=== PATIENT | male | born 1930 | race Caucasian/White ===

== ENCOUNTER 2017-10-09 14:26 | Inpatient (IN) ==
[2017-10-09 15:11] VITALS: BMI 29.0
--- NOTE | 2017-10-09 15:30 | History & Physical Report ---
History of Present Illness Date: 10/09/17 Chief complaint: influenza HPI: Patient is a very pleasant 87yo male who appears younger than stated age. He lives independently. He reported to his PCP's office (Dr Bowman) this morning with fever, cough and SOA. His O2 sat was low 80's on arrival and he required 2L O2 to keep sats >90%. Patient has asthma since age 21. He states his sxs started at 5pm last night. Influenza testing was positive for "B" in PCP's office. Given the influenza dx in an asthmatic pt with O2 sats in the low 80's , hospitalist service was contacted and accepted patient as a direct admit for IP hospitalization for tx w/ Tamiflu and Duonebs and further w-u. Review of Systems All systems PM: 10-point ROS was reviewed, no additional remarkable complaints except (cough, SOA, fever) Past Medical History Medical History DM Type 2 - on insulin H/o TIA Coronary Artery Disease - s/p stents and CABG HTN HLD Asthma -since age 21 (never smoker) Osteoporosis Surgical History: Total left knee arthroplasty, cataract bilaterally, back surgery 2 Family History: Father-"heart trouble" Mother- of old age at 99 Brother-"heart trouble" Sister-Alzheimer's Family History Updates: Updated - Social History Smoking status: Never smoker Substance use type: does not use Alcohol intake frequency: other (drinks wine occasionally) Housing: house Household members: none Current occupational status: retired Social history: 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 Mario in the past Brother, Tonio, and son, Juancho (lives in [place]) - named as DPOA-H Medications Home Medications Medication Instructions Recorded Confirmed Type Albuterol Sulfate [Proair Hfa] 2 puff INH Q4H PRN #0 inhaler 03/29/16 10/09/17 History Carvedilol [Coreg] 6.25 mg PO BIDWM #0 tab 03/29/16 10/09/17 History Fluticasone/Salmeterol [Advair 1 puff ORAL INH BID #0 inhaler 03/29/16 10/09/17 History 250-50 Diskus] Insulin Glargine,Hum.rec.anlog 30 unit SQ BID #0 03/29/16 10/09/17 History [Lantus Solostar] Alendronate Sodium [Alendronate 70 mg PO DAILY 02/12/17 10/09/17 History Sodium] Aspirin [Adult Low Dose Aspirin EC] 81 mg PO DAILY 02/12/17 10/09/17 History Cetirizine HCl 5 mg PO BID 02/12/17 10/09/17 History Multivitamin [Multivitamins] 1 tab PO DAILY 02/12/17 10/09/17 History Ubidecarenone [Co Q-10] 200 mg PO BID 10/09/17 10/09/17 History Allergies Allergy/AdvReac Type Severity Reaction Status Date / Time No Known Drug Allergies Allergy Unknown Verified 02/12/17 13:41 Exam Vital Signs: Temperature 101.5 F H 10/09/17 14:55 Pulse Rate 118 H 10/09/17 14:55 Respiratory Rate 22 10/09/17 14:55 Blood Pressure 182/72 H 10/09/17 14:55 Pulse Oximetry 91 10/09/17 14:55 Height/Weight/BMI: Height 1.65 m Weight 79.3 kg Body Mass Index 29.0 - Constitutional Present: no acute distress, well nourished, well developed - Routine HEENT Exam Head: Present: normocephalic, atraumatic Eye: Present: EOMI, PERRL ENT: Present: mucous membranes moist, oropharynx clear Comments: upper plate - Routine Neck Exam Present: supple. Absent: lymphadenopathy, thyromegaly - Routine Respiratory Exam Present: decreased breath sounds. Absent: wheezes Comments: tight/coarse sounding cough. Crackles R mid/lower lung - Routine Cardiovascular Exam Present: RRR, no murmur, tachycardia - Routine Abdominal Exam Present: soft, normoactive bowel sounds. Absent: tenderness, distended - Routine Extremities Exam Present: no edema, normal capillary refill - Routine Skin Exam Present: dry, warm - Routine Neurological Exam Present: alert, oriented X3 CN III-XII intact - Routine Psychiatric Exam Present: normal affect, cooperative Results - Labs CBC & Chem 7: 10/09/17 16:35 10/09/17 16:35 Assessment and Plan (1) Influenza B Current visit: Yes Status: Acute Assessment and Plan: Assessment Influenza B Possible (severe) sepsis - SIRS: T=101.5, tachy 118, labs pending. Pulmonary source of infection. Acute hypoxic respiratory failure Asthma exacerbation - (asthma dx age 21 (never smoker)) DM Type 2 - on insulin H/o TIA Coronary Artery Disease - s/p stents and CABG HTN HLD Osteoporosis Plan Direct admit from Dr. Bowman to IP, under the hospitalist service, Dr. Richey attending. LOS expected to exceed 2 midnights d/t hypoxia r/t influenza in an asthmatic patient and comorbidities including DM and CAD. Start Tamiflu, Duonebs for influenza and asthma exacerbation. Dr Richey to determine if pt needs steroids after he has Duoneb tx. Check labs - CBC, CMP, Mg, lactate, BSx2, UA. CXR and labs pending at time of documentation. Start IVF's for gentle hydration. Accucheck 2 hr pp and hs. Continue home insulin and SSI. Need for antibiotics or large volume IV hydration pending on further w-u. Protonix for GI ppx. SCD's and lovenox for VTE ppx. Patient wishes to be a DNR and appoints his brother, Tonio Hassan, and son, Juancho, as his DPOA-H. Case discussed with Dr Richey. Care to return to Dr. Bowman on dismissal. DVT Prophylaxis: SCD's, Lovenox Resuscitation Status: Do Not Resuscitate - Physician Narrative Physician: Sandy Richey MD Narrative: Date: 10/09/17 Time: 2199 I have independently evaluated and examined Dr. Bowman patient. I reviewed the chart, the patient's history, and the [facility]ER/PA's documented findings as above. We discussed and formulated the assessment and plan as above with additions as below: Mr. Hassan acutely developed cough, myalgias, fever, fatigue, and generalized weakness impairing ability to walk yesterday while watching the [facility] basketball game. He presented to his primary care physician's office earlier today where he was hypoxic, cyanotic, and appeared acutely ill. He had generalized wheezing primarily in the right upper lobe. He received breathing treatments prior to referral to the hospital for admission. Swab for influenza was positive for influenza B. Oxygen saturation 91% on 3 L supplemental O2, patient is alert and cooperative. Initial blood pressure 182/72 Oropharynx is clear, neck supple without adenopathy Respirations nonlabored the time of my evaluation, good airflow but coarse sounds at both bases; inspiration triggers repetitive cough Regular rhythm White count 8.177% neutrophils, BUN 23, creatinine 1.2, lactic acid 2.3-3.0 Chest x-ray reviewed by myself-NAD Acute hypoxic respiratory failure with asthma exacerbation due to acute influenza B Supportive management, Tamiflu initiated. Additional fluids to be given for lactic acidosis (likely due to volume depletion and preceding hypoxia). Prednisone initiated in place of IV steroids in conjunction with breathing treatments for management of asthma exacerbation. Because patient has known viral illness severe sepsis is not an appropriate clinical diagnosis. Discussed with Dr. Bowman prior to transfer to the hospital. Sepsis Assessment - Evaluation SIRS Criteria: temperature > 100.9, pulse > 90 beats/minute, RR > 20 Severe Sepsis: lactate > 2.0 mg/dL Hospital Course Summary Disclaimer: The visit summary below is not to be considered part of the above Progress Note. Hospital Course: 10/09/17 - Hospital admission for influenza B: Direct admit from Dr. Bowman to , under the hospitalist service, Dr. Richey attending. LOS expected to exceed 2 midnights d/t hypoxia r/t influenza in an asthmatic patient and comorbidities including DM and CAD. Start Tamiflu, Duonebs for influenza and asthma exacerbation. Dr Richey to determine if pt needs steroids after he has Duoneb tx. Check labs - CBC, CMP, Mg, lactate, BSx2, UA. CXR and labs pending at time of documentation. Start IVF's for gentle hydration. Accucheck 2 hr pp and hs. Continue home insulin and SSI. Need for antibiotics or large volume IV hydration pending on further w-u. Protonix for GI ppx. SCD's and lovenox for VTE ppx. Patient wishes to be a DNR and appoints his brother, Tonio Hassan, and son, Juancho, as his DPOA-H. Case discussed with Dr Richey. Care to return to Dr. Bowman on dismissal.
[2017-10-09] MEDS ORDERED: METHYLPREDNISOLONE SOD SUCC 125mg/2ml INJECTION IVP SCH (16:00)
[2017-10-09] MEDS: ALBUTEROL/IPRATROPIUM 2.5mg-0.5mg/3ml NEB AEROSOL SCH ×2 (16:43→20:47)
[2017-10-09] MEDS: CARVEDILOL 6.25 MG TABLET PO SCH (16:46)
[2017-10-09] MEDS ORDERED: ACETAMINOPHEN 325 MG TABLET PO PRN (17:17)
[2017-10-09] MEDS ORDERED: MENTHOL COUGH DROPS (RICOLA) MM PRN (17:18)
[2017-10-09] MEDS ORDERED: HYDROCODONE/CHLORPHENIRAMINE ER ORAL LIQ 5ml PO PRN (18:59)
[2017-10-09] MEDS ORDERED: ALBUTEROL/IPRATROPIUM 2.5mg-0.5mg/3ml NEB AEROSOL PRN (19:00)
[2017-10-09] MEDS: GUAIFENESIN/D-METHORPHAN 600mg/30mg TABLET PO SCH (20:18)
[2017-10-09] MEDS: PredniSONE 20 MG TABLET PO SCH (20:18)
[2017-10-09] MEDS: COENZYME Q-10 200mg TABLET PO SCH (20:18)
[2017-10-09] MEDS: CETIRIZINE 10 MG TABLET PO SCH (20:19)
[2017-10-09] MEDS: BENZONATATE 200 MG CAPSULE PO PRN (20:23)
[2017-10-09] MEDS: INSULIN GLARGINE 100unit/ml INJECTION SQ SCH (20:25)
[2017-10-09] MEDS: INSULIN ASPART 100unit/ml INJECTION SQ PRN (22:25)
[2017-10-09] MEDS: NS 1,000 ML IV SCH (22:30)
[2017-10-10] MEDS: NS 1,000 ML IV SCH ×2 (06:01→14:04)
[2017-10-10] MEDS: PANTOPRAZOLE 20 MG TABLET PO SCH (06:02)
[2017-10-10] MEDS: INSULIN ASPART 100unit/ml INJECTION SQ PRN ×4 (06:02→22:07)
[2017-10-10] MEDS: ALBUTEROL/IPRATROPIUM 2.5mg-0.5mg/3ml NEB AEROSOL SCH ×3 (06:57→19:10)
--- NOTE | 2017-10-10 08:12 | XRay Report ---
INDICATION: influenza, hypoxia PROCEDURE: CHEST 2-VIEWS UPRIGHT (PA & LAT) Encounter: Initial COMPARISON: December 21, 2014 FINDINGS: Minimal basilar atelectasis without focal lobar pneumonia. There is no pleural effusion or pneumothorax. The heart size, mediastinal contours and pulmonary vascularity are stable. Prior CABG. IMPRESSION: No pneumonia or congestive failure. There is a preliminary report by virtual radiologic. .
[2017-10-10] MEDS: PredniSONE 20 MG TABLET PO SCH (09:17)
[2017-10-10] MEDS: CETIRIZINE 10 MG TABLET PO SCH ×2 (09:17→21:40)
[2017-10-10] MEDS: GUAIFENESIN/D-METHORPHAN 600mg/30mg TABLET PO SCH ×2 (09:17→21:41)
[2017-10-10] MEDS: ASPIRIN *EC* 81 MG TABLET PO SCH (09:17)
[2017-10-10] MEDS: COENZYME Q-10 200mg TABLET PO SCH ×2 (09:17→21:41)
[2017-10-10] MEDS: CARVEDILOL 6.25 MG TABLET PO SCH ×2 (09:17→17:41)
[2017-10-10] MEDS: MULTI-VITAMIN PLAIN TABLET PO SCH (09:17)
[2017-10-10] MEDS: INSULIN GLARGINE 100unit/ml INJECTION SQ SCH ×2 (09:18→22:07)
[2017-10-10] MEDS: ENOXAPARIN 40 MG/0.4 ML INJECTION SQ SCH (09:18)
--- NOTE | 2017-10-10 14:31 | Progress Note ---
- Date 10/10/17 Subjective: Patient states he is feeling much better. Asking how long he will be in the hospital. Reports that he is drinking well and would like the IVF stopped. He denies oxygen use at home. Objective Vital signs: Temperature 97.0 F 10/10/17 07:00 Pulse Rate 81 10/10/17 07:00 Respiratory Rate 18 10/10/17 13:36 Blood Pressure 125/67 10/10/17 07:00 Pulse Oximetry 96 10/10/17 13:36 Rhythm: Normal Sinus Rhythm Height/Weight/BMI: Height 5 ft 5 in Weight 78 kg Body Mass Index 29.0 - Constitutional Present: no acute distress, well nourished, well developed - Routine HEENT Exam Head: Present: normocephalic, atraumatic Eye: Present: EOMI, conjunctivae pink ENT: Present: mucous membranes moist - Routine Respiratory Exam Present: decreased breath sounds Comments: bilateral - Routine Cardiovascular Exam Present: RRR, no murmur - Routine Abdominal Exam Present: soft, normoactive bowel sounds. Absent: tenderness - Routine Extremities Exam Present: no edema, pulses intact, normal capillary refill. Absent: clubbing - Routine Musculoskeletal Exam Musculoskeletal: Present: no clubbing or cyanosis, no tenderness - Routine Skin Exam Present: intact, dry, warm - Routine Neurological Exam Present: alert, CN II-XII intact - Routine Psychiatric Exam Present: normal affect Results - Labs CBC & Chem 7: 10/10/17 05:13 10/10/17 05:13 Microbiology Results: Microbiology 10/10/17 14:10 Sputum, Expectorated Sputum Culture - Preliminary Culture Initiated - Results Pending 10/09/17 16:41 Peripheral/Iv Start Blood Culture - Preliminary Culture Initiated - Results Pending 10/09/17 16:35 Peripheral/Iv Start Blood Culture - Preliminary Culture Initiated - Results Pending - Imaging and Cardiology Chest x-ray Additional comments: No acute findings Assessment and Plan Assessment and Plan: Assessment Influenza B Acute hypoxic respiratory failure Bandemia Asthma exacerbation - (asthma dx age 21 (never smoker)) DM Type 2 - on insulin H/o TIA Coronary Artery Disease - s/p stents and CABG HTN HLD Osteoporosis Plan Continue Tamiflu Patient with no leukocytosis but bandemia today, did get steroids--will trend and obtain PCT Start Tamiflu, Duonebs for influenza and asthma exacerbation. CXR negative, is on oxygen but sats are >95, wean as tolerated. Discontinue IVF, monitor I/O Accucheck 2 hr pp and hs. Continue home insulin and SSI. Protonix for GI ppx. SCD's and lovenox for VTE ppx. Patient wishes to be a DNR and appoints his brother, Tonio aHssan, and son, Juancho, as his DPOA-H. Continue inpatient admission: trend labs, monitor for signs of bacterial infection, wean oxygen DVT Prophylaxis: Lovenox Resuscitation Status: Do Not Resuscitate - Physician Narrative Physician: other (Carly Johnson MD ) Narrative: Date: 10/10/17 Time: 1426 Hospital Course Summary Disclaimer: The visit summary below is not to be considered part of the above Progress Note. Hospital Course: 10/09/17 - Hospital admission for influenza B: Direct admit from Dr. Bowman to , under the hospitalist service, Dr. Richey attending. LOS expected to exceed 2 midnights d/t hypoxia r/t influenza in an asthmatic patient and comorbidities including DM and CAD. Start Tamiflu, Duonebs for influenza and asthma exacerbation. Dr Richey to determine if pt needs steroids after he has Duoneb tx. Check labs - CBC, CMP, Mg, lactate, BSx2, UA. CXR and labs pending at time of documentation. Start IVF's for gentle hydration. Accucheck 2 hr pp and hs. Continue home insulin and SSI. Need for antibiotics or large volume IV hydration pending on further w-u. Protonix for GI ppx. SCD's and lovenox for VTE ppx. Patient wishes to be a DNR and appoints his brother, Tonio Hassan, and son, Juancho, as his DPOA-H. Case discussed with Dr Richey. Care to return to Dr. Bowman on dismissal. 10/10/17 Continue Tamiflu Patient with no leukocytosis but bandemia today, did get steroids--will trend and obtain PCT Start Tamiflu, Duonebs for influenza and asthma exacerbation. CXR negative, is on oxygen but sats are >95, wean as tolerated. Discontinue IVF, monitor I/O Accucheck 2 hr pp and hs. Continue home insulin and SSI. Protonix for GI ppx. SCD's and lovenox for VTE ppx. Patient wishes to be a DNR and appoints his brother, Tonio Hassan, and son, Juancho, as his DPOA-H. Continue inpatient admission: trend labs, monitor for signs of bacterial infection, wean oxygen
[2017-10-11] MEDS: BENZONATATE 200 MG CAPSULE PO PRN ×2 (03:37→10:30)
[2017-10-11] MEDS: PANTOPRAZOLE 20 MG TABLET PO SCH (06:37)
[2017-10-11] MEDS: INSULIN ASPART 100unit/ml INJECTION SQ PRN ×2 (06:38→11:16)
[2017-10-11 06:44] VITALS: TEMP 97.2
[2017-10-11] MEDS: ALBUTEROL/IPRATROPIUM 2.5mg-0.5mg/3ml NEB AEROSOL SCH (08:15)
[2017-10-11 09:05] VITALS: BP 152/71; PULSE 72; RESP 18; O2SAT 95
[2017-10-11] MEDS: CETIRIZINE 10 MG TABLET PO SCH (09:11)
[2017-10-11] MEDS: COENZYME Q-10 200mg TABLET PO SCH (09:11)
[2017-10-11] MEDS: GUAIFENESIN/D-METHORPHAN 600mg/30mg TABLET PO SCH (09:11)
[2017-10-11] MEDS: CARVEDILOL 6.25 MG TABLET PO SCH (09:11)
[2017-10-11] MEDS: ASPIRIN *EC* 81 MG TABLET PO SCH (09:12)
[2017-10-11] MEDS: INSULIN GLARGINE 100unit/ml INJECTION SQ SCH (09:15)
[2017-10-11] MEDS: ENOXAPARIN 40 MG/0.4 ML INJECTION SQ SCH (09:25)
[2017-10-11] MEDS: MULTI-VITAMIN PLAIN TABLET PO SCH (09:25)
[2017-10-11] MEDS: PredniSONE 20 MG TABLET PO SCH (09:25)
--- NOTE | 2017-10-11 14:52 | Discharge Summary ---
Discharge Information Date of admission: 10/09/17 14:32 Anticipated date of discharge: 10/11/17 Attending Physician: Carly Johnson MD Primary care physician: Howard Bowman DO - Discharge Diagnosis (1) Influenza B Status: Acute Influenza B Hypoxia - Laboratory Labs: Laboratory Tests 10/09/17 10/09/17 10/09/17 16:35 16:35 20:25 WBC 8.1 RBC 4.32 L Hgb 14.5 Hct 42.3 MCV 97.9 MCH 33.6 MCHC 34.3 RDW Std Deviation 40.0 Plt Count 175 MPV 10.4 Immature Gran % (Auto) 0.1 Neut % (Auto) 77.3 H Lymph % (Auto) 12.3 L S[place] % (Auto) 9.9 H Eos % (Auto) 0.2 Baso % (Auto) 0.2 Neut # (Auto) 6.3 Lymph # (Auto) 1.0 Sargent # (Auto) 0.8 Eos # (Auto) 0.0 Baso # (Auto) 0.0 Abs Immat Gran (auto) 0.01 Neutrophils % (Manual) Band Neutrophils % Lymphocytes % (Manual) Reactive Lymphs % Monocytes % (Manual) Eosinophils % (Manual) Neutrophils # (Manual) Band Neutrophils # Lymphocytes # (Manual) Abs React Lymphs (Man) Monocytes # (Manual) Eosinophils # (Manual) RBC Morph Comment Turbidity < 20 Sodium 137 Potassium 5.0 Chloride 101 Carbon Dioxide 24 Anion Gap 12 BUN 23.0 H Creatinine 1.2 GFR Calculation 57 BUN/Creatinine Ratio 19 Glucose 261 H Glucometer Calculated Osmolality 277 Calcium 8.7 Magnesium 1.7 Total Bilirubin 0.70 Icterus Index < 2 AST 23 ALT 35 Alkaline Phosphatase 74 Total Protein 7.3 Albumin 4.1 Globulin 3.2 Albumin/Globulin Ratio 1.3 Plasma Lactate 2.3 H 3.0 H Procalcitonin Specimen Hemolysis < 15 Ur Collection Type Urine Color Urine Clarity Urine pH Ur Specific [place] Urine Protein Urine Glucose (UA) Urine Ketones Urine Occult Blood Urine Nitrate Urine Bilirubin Urine Urobilinogen Ur Leukocyte Esterase Urine RBC Urine WBC Ur Squamous Epith Cells Urine Bacteria Hyaline Casts Urine Mucus Ur Culture Indicated? 10/09/17 10/10/17 10/10/17 20:39 05:13 05:13 WBC 7.2 RBC 3.99 L Hgb 13.4 L Hct 39.0 L MCV 97.7 MCH 33.6 MCHC 34.4 RDW Std Deviation 40.4 Plt Count 149 MPV 10.4 Immature Gran % (Auto) Not performed Neut % (Auto) Not performed Lymph % (Auto) Not performed Sargent % (Auto) Not performed Eos % (Auto) Not performed Baso % (Auto) Not performed Neut # (Auto) Not performed Lymph # (Auto) Not performed S[place]ent # (Auto) Not performed Eos # (Auto) Not performed Baso # (Auto) Not performed Abs Immat Gran (auto) Not performed Neutrophils % (Manual) 29.0 L Band Neutrophils % 34.0 H Lymphocytes % (Manual) 19.0 L Reactive Lymphs % 1.0 H Monocytes % (Manual) 16.0 H Eosinophils % (Manual) 1.0 Neutrophils # (Manual) 2.1 Band Neutrophils # 2.4 Lymphocytes # (Manual) 1.4 Abs React Lymphs (Man) 0.1 H Monocytes # (Manual) 1.2 H Eosinophils # (Manual) 0.1 RBC Morph Comment Normal Turbidity < 20 Sodium 135 Potassium 5.0 Chloride 102 Carbon Dioxide 23 Anion Gap 10 BUN 27.0 H Creatinine 1.2 GFR Calculation 57 BUN/Creatinine Ratio 23 Glucose 247 H Glucometer 262 Calculated Osmolality 273 Calcium 8.3 L Magnesium Total Bilirubin Icterus Index < 2 AST ALT Alkaline Phosphatase Total Protein Albumin Globulin Albumin/Globulin Ratio Plasma Lactate Procalcitonin Specimen Hemolysis < 15 Ur Collection Type Urine Color Urine Clarity Urine pH Ur Specific [place] Urine Protein Urine Glucose (UA) Urine Ketones Urine Occult Blood Urine Nitrate Urine Bilirubin Urine Urobilinogen Ur Leukocyte Esterase Urine RBC Urine WBC Ur Squamous Epith Cells Urine Bacteria Hyaline Casts Urine Mucus Ur Culture Indicated? 10/10/17 10/10/17 10/10/17 05:13 05:38 06:11 WBC RBC Hgb Hct MCV MCH MCHC RDW Std Deviation Plt Count MPV Immature Gran % (Auto) Neut % (Auto) Lymph % (Auto) Sargent % (Auto) Eos % (Auto) Baso % (Auto) Neut # (Auto) Lymph # (Auto) S[place]ent # (Auto) Eos # (Auto) Baso # (Auto) Abs Immat Gran (auto) Neutrophils % (Manual) Band Neutrophils % Lymphocytes % (Manual) Reactive Lymphs % Monocytes % (Manual) Eosinophils % (Manual) Neutrophils # (Manual) Band Neutrophils # Lymphocytes # (Manual) Abs React Lymphs (Man) Monocytes # (Manual) Eosinophils # (Manual) RBC Morph Comment Turbidity Sodium Potassium Chloride Carbon Dioxide Anion Gap BUN Creatinine GFR Calculation BUN/Creatinine Ratio Glucose Glucometer 223 Calculated Osmolality Calcium Magnesium Total Bilirubin Icterus Index AST ALT Alkaline Phosphatase Total Protein Albumin Globulin Albumin/Globulin Ratio Plasma Lactate Procalcitonin 9.79 H* Specimen Hemolysis Ur Collection Type Urine, void-cc/notcc Urine Color Yellow Urine Clarity Clear Urine pH 6.0 Ur Specific [place] 1.020 Urine Protein 1+ A Urine Glucose (UA) Trace A Urine Ketones Negative Urine Occult Blood 2+ A Urine Nitrate Negative Urine Bilirubin Negative Urine Urobilinogen 0.2 Ur Leukocyte Esterase Negative Urine RBC 1-3 Urine WBC None seen Ur Squamous Epith Cells None seen Urine Bacteria 1+ H Hyaline Casts 0-1 Urine Mucus Present Ur Culture Indicated? Cult not indicated 10/10/17 10/10/17 10/10/17 10:59 15:00 22:01 WBC RBC Hgb Hct MCV MCH MCHC RDW Std Deviation Plt Count MPV Immature Gran % (Auto) Neut % (Auto) Lymph % (Auto) S[place]ent % (Auto) Eos % (Auto) Baso % (Auto) Neut # (Auto) Lymph # (Auto) S[place]ent # (Auto) Eos # (Auto) Baso # (Auto) Abs Immat Gran (auto) Neutrophils % (Manual) Band Neutrophils % Lymphocytes % (Manual) Reactive Lymphs % Monocytes % (Manual) Eosinophils % (Manual) Neutrophils # (Manual) Band Neutrophils # Lymphocytes # (Manual) Abs React Lymphs (Man) Monocytes # (Manual) Eosinophils # (Manual) RBC Morph Comment Turbidity Sodium Potassium Chloride Carbon Dioxide Anion Gap BUN Creatinine GFR Calculation BUN/Creatinine Ratio Glucose Glucometer 295 267 312 Calculated Osmolality Calcium Magnesium Total Bilirubin Icterus Index AST ALT Alkaline Phosphatase Total Protein Albumin Globulin Albumin/Globulin Ratio Plasma Lactate Procalcitonin Specimen Hemolysis Ur Collection Type Urine Color Urine Clarity Urine pH Ur Specific [place] Urine Protein Urine Glucose (UA) Urine Ketones Urine Occult Blood Urine Nitrate Urine Bilirubin Urine Urobilinogen Ur Leukocyte Esterase Urine RBC Urine WBC Ur Squamous Epith Cells Urine Bacteria Hyaline Casts Urine Mucus Ur Culture Indicated? 10/11/17 10/11/17 10/11/17 03:58 03:58 06:24 WBC 5.9 RBC 3.77 L Hgb 12.5 L Hct 37.0 L MCV 98.1 MCH 33.2 MCHC 33.8 RDW Std Deviation 40.3 Plt Count 161 MPV 10.6 Immature Gran % (Auto) Neut % (Auto) Lymph % (Auto) S[place]ent % (Auto) Eos % (Auto) Baso % (Auto) Neut # (Auto) Lymph # (Auto) S[place]ent # (Auto) Eos # (Auto) Baso # (Auto) Abs Immat Gran (auto) Neutrophils % (Manual) 41.0 Band Neutrophils % 21.0 H D Lymphocytes % (Manual) 23.0 Reactive Lymphs % Monocytes % (Manual) 14.0 H Eosinophils % (Manual) 1.0 Neutrophils # (Manual) 2.4 Band Neutrophils # 1.2 Lymphocytes # (Manual) 1.4 Abs React Lymphs (Man) Monocytes # (Manual) 0.8 Eosinophils # (Manual) 0.1 RBC Morph Comment Normal Turbidity Sodium Potassium Chloride Carbon Dioxide Anion Gap BUN Creatinine GFR Calculation BUN/Creatinine Ratio Glucose Glucometer 188 Calculated Osmolality Calcium Magnesium Total Bilirubin Icterus Index AST ALT Alkaline Phosphatase Total Protein Albumin Globulin Albumin/Globulin Ratio Plasma Lactate Procalcitonin 8.29 H* Specimen Hemolysis Ur Collection Type Urine Color Urine Clarity Urine pH Ur Specific [place] Urine Protein Urine Glucose (UA) Urine Ketones Urine Occult Blood Urine Nitrate Urine Bilirubin Urine Urobilinogen Ur Leukocyte Esterase Urine RBC Urine WBC Ur Squamous Epith Cells Urine Bacteria Hyaline Casts Urine Mucus Ur Culture Indicated? 10/11/17 11:00 WBC RBC Hgb Hct MCV MCH MCHC RDW Std Deviation Plt Count MPV Immature Gran % (Auto) Neut % (Auto) Lymph % (Auto) [place] % (Auto) Eos % (Auto) Baso % (Auto) Neut # (Auto) Lymph # (Auto) [place] # (Auto) Eos # (Auto) Baso # (Auto) Abs Immat Gran (auto) Neutrophils % (Manual) Band Neutrophils % Lymphocytes % (Manual) Reactive Lymphs % Monocytes % (Manual) Eosinophils % (Manual) Neutrophils # (Manual) Band Neutrophils # Lymphocytes # (Manual) Abs React Lymphs (Man) Monocytes # (Manual) Eosinophils # (Manual) RBC Morph Comment Turbidity Sodium Potassium Chloride Carbon Dioxide Anion Gap BUN Creatinine GFR Calculation BUN/Creatinine Ratio Glucose Glucometer 207 Calculated Osmolality Calcium Magnesium Total Bilirubin Icterus Index AST ALT Alkaline Phosphatase Total Protein Albumin Globulin Albumin/Globulin Ratio Plasma Lactate Procalcitonin Specimen Hemolysis Ur Collection Type Urine Color Urine Clarity Urine pH Ur Specific [place] Urine Protein Urine Glucose (UA) Urine Ketones Urine Occult Blood Urine Nitrate Urine Bilirubin Urine Urobilinogen Ur Leukocyte Esterase Urine RBC Urine WBC Ur Squamous Epith Cells Urine Bacteria Hyaline Casts Urine Mucus Ur Culture Indicated? - Microbiology Microbiology 10/10/17 14:10 Sputum, Expectorated Gram Stain - Final 10/10/17 14:10 Sputum, Expectorated Sputum Culture - Preliminary Normal Respiratory Laney 10/09/17 16:35 Peripheral/Iv Start Blood Culture - Preliminary No Growth After 1 Day 10/09/17 16:41 Peripheral/Iv Start Blood Culture - Preliminary No Growth After 1 Day - Radiology Radiology: CXR-no acute abnormalities History of Present Illness HPI: Patient is a very pleasant 87yo male who appears younger than stated age. He lives independently. He reported to his PCP's office (Dr Bowman) this morning with fever, cough and SOA. His O2 sat was low 80's on arrival and he required 2L O2 to keep sats >90%. Patient has asthma since age 21. He states his sxs started at 5pm last night. Influenza testing was positive for "B" in PCP's office. Given the influenza dx in an asthmatic pt with O2 sats in the low 80's , hospitalist service was contacted and accepted patient as a direct admit for IP hospitalization for tx w/ Tamiflu and Duonebs and further w-u. Objective Vital signs: Temperature 97.2 F 10/11/17 09:03 Pulse Rate 72 10/11/17 09:03 Respiratory Rate 18 10/11/17 09:03 Blood Pressure 152/71 H 10/11/17 09:03 Pulse Oximetry 95 10/11/17 12:14 Rhythm: Normal Sinus Rhythm Height/Weight/BMI: Height 5 ft 5 in Weight 81.9 kg Body Mass Index 29.0 - Constitutional Present: no acute distress, cooperative - Routine HEENT Exam Head: Present: normocephalic, atraumatic Eye: Present: EOMI, conjunctivae pink ENT: Present: mucous membranes moist, nares patent - Routine Respiratory Exam Present: CTA bilaterally - Routine Cardiovascular Exam Present: RRR, no murmur - Routine Abdominal Exam Present: soft, normoactive bowel sounds, non distended, non tender - Routine Extremities Exam Present: no edema. Absent: cyanosis, clubbing - Routine Skin Exam Present: intact, dry, warm - Routine Neurological Exam Present: alert, oriented X3, CN II-XII intact - Routine Psychiatric Exam Present: normal affect, good insight Hospital Course This is a general summary of the patient's hospital course. For more details refer to the complete medical record. Hospital course: Patient was a direct admit from Dr. Bowman to , under the hospitalist service. He was diagnosed with influenza B and asthma exacerbation. He was started on Tamiflu and steroids and breathing treatments. He also required oxygen for hypoxia. Labs were monitored. Patient did have significant bandemia with negative procalcitonin. He had no signs of bacterial infection and antibiotics were not started. His labs were improving. Patient was able to be titrated to room air. He was requesting discharge. He was tolerating PO well, not requiring oxygen or frequent breathing treatments. He was discharged home in stable condition with needed prescriptions and instructions for follow up. Resuscitation Status: Do Not Resuscitate Discharge Plan - Discharge Disposition Discharge Date: 10/11/17 Disposition: Discharged Home, Self-Care *Condition: Stable Reason For Visit (Visit label in EMR): influenza B/Hypoxia - Discharge Medications *Discharge Medications: New RX: Benzonatate [Tessalon Perles] 200 mg PO TID PRN #20 cap PRN Reason: coughing RX: Oseltamivir Cap [Tamiflu] 75 mg PO BID 3 Days #6 cap Continue RX: Albuterol Sulfate [Proair Hfa] 2 puff INH Q4H PRN #0 inhaler PRN Reason: PRN ORDERS RX: Cetirizine HCl 5 mg PO BID RX: Aspirin [Adult Low Dose Aspirin EC] 81 mg PO DAILY RX: Multivitamin [Multivitamins] 1 tab PO DAILY RX: Ubidecarenone [Co Q-10] 200 mg PO BID RX: Fluticasone/Salmeterol [Advair 250-50 Diskus] 1 puff ORAL INH BID #0 inhaler RX: Carvedilol [Coreg] 6.25 mg PO BIDWM #0 tab RX: Insulin Glargine,Hum.rec.anlog [Lantus Solostar] 30 unit SQ BID #0 RX: Alendronate Sodium 70 mg PO DAILY - Discharge Packet/Instructions *Diet: regular *Activity: Activity as tolerated *Pain Management/Treatment: Tylenol *Wound Care: None Additional Instructions: Take Tamiflu twice a day for 3 additional days. Use Tessalon Perles as needed for coughing. Follow-up with Dr. Bowman in one week *Expected Signs/Symptoms: Improvement in symptoms *Notify Physician if: Fever, chills, shortness of breath or concerning symptoms *During Business Hours Contact: Dr Bowman *After Business Hours Contact: Oncall Physician or present to ER *Pending Lab/Results: No Pending Lab - Referrals/Follow Up *Referrals/Follow Up: Howard Bowman DO [Family Provider] - 10/18/17 9:45 am (Schedule follow-up appointment for 1 week) - Patient Handouts Patient Handouts: Influenza (GEN) - Dismissal Complete Discharge Instructions are:: Complete Physician Narrative - Narrative Attestation Narrative: Date: 10/11/17 Time: 2406
== END 2017-10-11 14:45 | disposition home or self-care (01) | DRG 189 ==
LOC: MED 14:32 → SUATTDRO 14:32
PROVIDERS: ADMIT Internal Medicine; ATTEND Pediatrics